=== PATIENT | female | born 1995 | race Caucasian/White ===

== ENCOUNTER 2020-07-27 07:39 | Inpatient (IN) ==
[2020-07-27] MEDS ORDERED: OXYTOCIN 30 UNITS/500 ML BAG IV PRN (09:45)
--- NOTE | 2020-07-27 10:01 | Labor Progress Brief Note ---
Date of Service July 27, 2020 Subjective Reason For Note: Other Admit Note 25 F P0000 at 39.2 weeks admitted for induction of labor for gestational diabetes cdiet controlled. GBS is negative. FHT Cat 1. Covid is negative. Cervix is 2/50/-3/intact/posterior/soft. EFW [address] Cytotec vaginally to start cervical ripening. Assessment & Plan Admission and Anticipated Discharge Date Admission Date: July 27, 2020 Results & Data ([facility]) Vital Signs (Past 12 Hours) Vital Signs Temp Pulse Resp BP 07/27/20 07:53 37.1 C 106 H 18 131/73 07/27/20 07:49 106 H 131/73
--- NOTE | 2020-07-27 10:16 | Labor Progress Brief Note ---
Date of Service July 27, 2020 Subjective Reason For Note: Routine Evaluation Assessment & Plan Admission and Anticipated Discharge Date Admission Date: July 27, 2020 Physical Exam Physical Exam: Cytotec 25 mcg placed vaginally. Results & Data ([facility]) Vital Signs (Past 12 Hours) Vital Signs Temp Pulse Resp BP 07/27/20 07:53 37.1 C 106 H 18 131/73 07/27/20 07:49 106 H 131/73
[2020-07-27] MEDS: miSOPROStoL 25 MCG TAB PV SCH ×2 (10:20→15:46)
[2020-07-27 10:26] LABS: Hematocrit (blood only) 33.9 % (37-47); Mean Corpuscular Hemoglobin 25.1 pg (25-34); Mean Corpuscular Hgb Conc 32.4 g/dL (32-36); Mean Corpuscular Volume 77.2 fL (80-100); Mean Platelet Volume 11.2 fL (7.4-10.4); Platelet Count 259 K/uL (130-400); RDW Coefficient of Variation 14.3 % (11.5-14.5); RDW Standard Deviation 40.5 fL (36.4-46.3); Red Blood Count 4.39 M/uL (4.2-5.4); White Blood Count 9.17 K/uL (4.8-10.8)
[2020-07-27] MEDS: LACTATED RINGER'S 1,000 ML IV PRN (14:55)
--- NOTE | 2020-07-27 17:12 | Labor Progress Brief Note ---
Date of Service July 27, 2020 Assessment & Plan Admission and Anticipated Discharge Date Admission Date: July 27, 2020 Physical Exam Genitourinary: Manual OB Exam: + cervical dilation 1 cm and 2 cm, + cervical effacement 60% and + station high OB Exam Monitor Tracing: + external FHT monitor used, + external uterine monitor used, + category I and + normal FHT variability Results & Data ([facility]) Vital Signs (Past 12 Hours) Vital Signs Temp Pulse Resp BP 07/27/20 16:28 80 110/66 07/27/20 16:27 36.7 C 20 07/27/20 14:18 36.9 C 83 18 116/72 07/27/20 10:57 36.9 C 78 18 112/55 L 07/27/20 07:53 37.1 C 106 H 18 131/73 07/27/20 07:49 106 H 131/73
[2020-07-27] MEDS ORDERED: BUTORPHANOL TARTRATE 1 MG/ML VIAL IV PRN (17:30)
[2020-07-28] MEDS: miSOPROStoL 50 MCG TAB PO SCH ×2 (01:31→05:33)
[2020-07-28] MEDS ORDERED: OXYTOCIN 30 UNITS/500 ML BAG IV PRN (09:25)
--- NOTE | 2020-07-28 09:31 | History & Physical Report ---
Date of Service July 28, 2020 Assessment & Plan (1) Gestational diabetes: 25-year-old G1, P0 at 39 weeks and 4 days of gestation who was admitted yesterday for induction of labor at term for history of gestational diabetes and worsening lower extremity edema. Vital signs stable afebrile Heart rate reassuring GBS negative Lower extremity edema is much better today Received Cytotec and cervix is favorable now. Offered her Pitocin and AROM but she wants to eat breakfast first and then continue with induction of labor. All questions were answered. Admission and Anticipated Discharge Date Admission Date: July 27, 2020 History of Present Illness Primary Care Provider: NO PCP Patient is a 25-year-old at 39 weeks and 4 days of gestation who was admitted yesterday by Dr. Leon for induction of labor at term, gestational diabetes, increased lower extremity edema She has received Cytotec and has been fidencio off and on. No leakage of fluid or vaginal bleeding Good movements GBS negative Coronavirus testing is negative Allergies Allergy/AdvReac Type Severity Reaction Status Date / Time No Known Allergies Allergy Unverified 07/23/15 17:33 Home Medications Medication Instructions Recorded Confirmed Type vit no.[id number]-axpz-[id number] 1 tab PO DAILY 07/20/20 07/27/20 History [ Vitamin] Patient History Medical History (Updated 07/28/20 @ 09:30 by Shalom Cooper MD) Gestational diabetes Diet controlled PCOS (polycystic ovarian syndrome) Surgical History [place] teeth extracted Social History Smoking Status: Never smoker Hx Alcohol Use: No Hx Substance Use: No Preferred Language: Frisian Communication Ability: Effective Beliefs That Will Affect Care: None marital status: Current Living Situation: Spouse current occupational status: employed current occupation: Teacher - [employer] Other Information That Helps Us Care for You: No Feels Safe at Home: Yes Safety Concerns: Feels Safe At This Time Dental Care, Regularly: Yes Assistive Devices: None [employer]IC[employer] History No h/o STD's, no HSV/ Chlamydia/ GC Review of Systems All systems reviewed & are unremarkable except as noted in HPI & below Physical Exam Constitutional: WD/WN, vitals as above well developed and well nourished NAD Gastrointestinal (Abdomen): normal bowel sounds, soft, nontender, no hepatosplenomegaly (Miguel A 8 lb) Musculoskeletal: LE edema is much better , trace to +1, was +3 last week Genitourinary: normal external appearance Manual OB Exam: + cervical dilation 3 cm, + cervical effacement 70% and + station -2 OB Exam Monitor Tracing: + external uterine monitor used and + category I Results & Data ([facility]) Vital Signs (Past 12 Hours) Vital Signs Temp Pulse Resp BP 07/28/20 07:17 37 C 81 20 131/80 07/28/20 02:32 72 109/55 L 07/27/20 22:50 85 125/73 Code Status & VTE Plan VTE Prophylaxis Plan VTE Prophylaxis will be ordered: No
[2020-07-28] MEDS ORDERED: Nursing to Pharmacy Communication SCH (10:30)
[2020-07-28] MEDS: LACTATED RINGER'S 1,000 ML IV PRN ×3 (10:43→19:48)
[2020-07-28] MEDS ORDERED: ePHEDrine sulfate 50 MG/ML AMP ONE (12:59)
[2020-07-28] MEDS ORDERED: BUPIVACAINE 0.25% 30 ML VIAL ONE (12:59)
[2020-07-28] MEDS ORDERED: SODIUM CHLORIDE 0.9% INJ 10 ML VIAL ONE (12:59)
[2020-07-28] MEDS ORDERED: fentaNYL 2MCG/ML ROPIVACAINE 1.25MG/ML 100 ML BAG EPI ONE (13:00)
[2020-07-28] MEDS ORDERED: fentaNYL citrate 100 MCG/2 ML VIAL ONE (13:00)
--- NOTE | 2020-07-28 13:21 | Anesthesiology Consultation ---
Date of Service July 28, 2020 Assessment & Plan (1) Encounter for pre-operative examination: Chart Review Chart Review: Acceptable Risk for Surgery and Patient NOT seen in Pre Admission Testing Consults Requested none History Height/Weight Height: 5 ft 4 in Weight: 89.811 kg Allergies Allergy/AdvReac Type Severity Reaction Status Date / Time No Known Allergies Allergy Unverified 07/23/15 17:33 Medications Home Medications Medication Instructions Recorded Confirmed Last Taken vit no.077-psgh-cscar 1 tab PO DAILY 07/20/20 07/27/20 07/26/20 [ Vitamin] Active Medications Generic Name Dose Route Start Last Admin Trade Name Freq PRN Reason Stop Dose Admin Lactated Ringer's 1,000 mls @ 125 mls/hr 07/27/20 09:45 07/28/20 10:43 Lr IV 07/29/20 09:44 125 mls/hr .Q8H PRN Administration L&D Protocol Protocol Oxytocin 30 units in 500 mls @ 8 mls/hr 07/28/20 09:25 07/28/20 12:30 Pitocin IV 08/27/20 09:24 0.48 units/hr .Q24H PRN 8 mls/hr Labor Induction/Augmentation Titration Protocol 0.48 UNITS/HR Past Medical History Medical History Gestational diabetes Diet controlled PCOS (polycystic ovarian syndrome) Past Surgical History Surgical History [place] teeth extracted Social History Smoking Status: Never smoker Hx Alcohol Use: No Hx Substance Use: No Physical Exam Vital Signs Last Vital Signs Temp 37.1 C 07/28/20 12:32 Pulse 86 07/28/20 12:32 Resp 20 07/28/20 12:32 BP 111/73 07/28/20 12:32 Testing Laboratory Results 07/27/20 10:14
[2020-07-28] MEDS ORDERED: diphenhydrAMINE 50 MG/ML VIAL IV PRN (13:36)
[2020-07-28] MEDS ORDERED: fentaNYL 2MCG/ML ROPIVACAINE 1.25MG/ML 100 ML BAG EPI PRN (13:36)
[2020-07-28] MEDS ORDERED: ePHEDrine sulfate 50 MG/ML AMP IV PRN (13:36)
[2020-07-28] MEDS ORDERED: ONDANSETRON INJ 2 MG/ML 2 ML VIAL IV PRN (13:36)
[2020-07-28] MEDS ORDERED: NALOXONE HCL 0.4 MG/1 ML VIAL/CARP IV PRN (13:36)
[2020-07-28] MEDS ORDERED: NALOXONE HCL 1 MG in SODIUM CHLORIDE 0.9% 1000ML 1,000 ML IV PRN (13:36)
--- NOTE | 2020-07-28 16:38 | Obstetrical Progress Note ---
Date of Service July 28, 2020 Assessment & Plan Admission and Anticipated Discharge Date Admission Date: July 27, 2020 Subjective Patient has received epidural and comfortable now VE; 4/ 70%/ -2, tight bag, AROM'ed clear fluid FHR categ I Pitocin is at 10 mi/min Continue to monitor closely Results & Data ([facility]) Vital Signs (Past 12 Hours) Vital Signs Temp Pulse Resp BP Pulse Ox 07/28/20 16:33 88 100 07/28/20 16:30 75 119/69 07/28/20 16:28 78 99 07/28/20 16:23 72 98 07/28/20 16:18 71 99 07/28/20 16:14 82 119/63 07/28/20 16:13 76 98 07/28/20 16:08 71 98 07/28/20 16:03 92 H 99 07/28/20 15:59 90 127/73 07/28/20 15:58 83 98 07/28/20 15:53 90 99 07/28/20 15:48 71 97 07/28/20 15:44 79 120/70 07/28/20 15:43 78 99 07/28/20 15:38 76 98 07/28/20 15:33 83 98 07/28/20 15:30 69 116/65 07/28/20 15:28 71 97 07/28/20 15:23 81 97 07/28/20 15:18 69 98 07/28/20 15:15 71 120/65 07/28/20 15:13 74 98 07/28/20 15:08 78 98 07/28/20 15:03 82 99 07/28/20 14:59 86 112/71 07/28/20 14:58 80 98 07/28/20 14:55 36.8 C 16 07/28/20 14:53 82 97 07/28/20 14:48 87 98 07/28/20 14:44 70 118/67 07/28/20 14:43 75 97 07/28/20 14:38 75 98 07/28/20 14:33 83 98 07/28/20 14:30 20 07/28/20 14:29 84 121/68 07/28/20 14:28 81 98 07/28/20 14:27 82 113/67 07/28/20 14:25 82 115/66 07/28/20 14:23 89 120/64 98 07/28/20 14:21 85 120/67 07/28/20 14:19 90 120/69 07/28/20 14:18 86 98 07/28/20 14:17 88 123/67 07/28/20 14:15 75 118/65 07/28/20 14:13 91 H 115/67 98 07/28/20 14:11 77 114/60 07/28/20 14:09 83 115/61 07/28/20 14:08 84 98 07/28/20 14:07 81 20 119/63 07/28/20 14:05 85 119/63 07/28/20 14:03 84 125/65 98 07/28/20 14:01 97 H 130/69 07/28/20 13:59 96 H 131/79 07/28/20 13:58 93 H 98 07/28/20 13:57 87 18 128/72 07/28/20 13:53 98 H 99 07/28/20 13:48 90 100 07/28/20 13:43 89 99 07/28/20 13:38 37.1 C 85 20 141/73 H 100 07/28/20 12:32 37.1 C 86 20 111/73 07/28/20 11:27 85 107/60 07/28/20 10:51 37.4 C 95 H 20 114/73 07/28/20 07:17 37 C 81 20 131/80
[2020-07-28] MEDS ORDERED: NURSING L&D Epidural Breakthrough Pain Update ONE (20:50)
--- NOTE | 2020-07-28 22:35 | Obstetrical Progress Note ---
Date of Service July 28, 2020 Assessment & Plan Admission and Anticipated Discharge Date Admission Date: July 27, 2020 Subjective Patient was found to be fully dilated and desire to push. She has been pushing with good efforts. heart rate category 1. Head is at +2 station with caput 66 NEJM and anterior fontanelle at 11 o'clock position, OP. Patient is painful with trial of manual internal rotation. She understands second stage might be longer with occipitoposterior position. Continue to monitor and pushing with contractions. Results & Data ([facility]) Vital Signs (Past 12 Hours) Vital Signs Temp Pulse Resp BP Pulse Ox 07/28/20 22:30 106 H 156/64 H 07/28/20 22:28 133 H 95 07/28/20 22:23 114 H 98 07/28/20 22:21 111 H 85 L 07/28/20 22:18 107 H 98 07/28/20 22:14 111 H 86 L 07/28/20 22:13 108 H 97 07/28/20 22:08 102 H 98 07/28/20 22:07 94 H 90 07/28/20 22:05 82 123/58 L 07/28/20 22:03 100 H 88 L 07/28/20 22:00 94 H 90 07/28/20 21:58 91 H 99 07/28/20 21:53 100 H 82 L 07/28/20 21:48 95 H 86 L 07/28/20 21:46 100 H 129/61 07/28/20 21:43 93 H 98 07/28/20 21:42 93 H 89 L 07/28/20 21:38 93 H 99 07/28/20 21:34 107 H 88 L 07/28/20 21:33 88 98 07/28/20 21:31 148 H 149/56 H 07/28/20 21:28 109 H 100 07/28/20 21:23 91 H 99 07/28/20 21:18 97 H 100 07/28/20 21:14 112 H 149/94 H 07/28/20 21:13 101 H 100 07/28/20 21:08 114 H 99 07/28/20 21:05 36.5 C 16 07/28/20 21:03 104 H 100 07/28/20 21:01 104 H 133/73 07/28/20 20:58 98 H 99 07/28/20 20:53 96 H 100 07/28/20 20:48 89 100 07/28/20 20:44 93 H 123/69 07/28/20 20:43 94 H 99 07/28/20 20:38 83 99 07/28/20 20:33 89 99 07/28/20 20:31 99 H 122/71 07/28/20 20:28 103 H 100 07/28/20 20:23 82 100 07/28/20 20:18 91 H 100 07/28/20 20:14 74 108/63 07/28/20 20:13 73 99 07/28/20 20:08 74 99 07/28/20 20:03 70 99 07/28/20 20:01 37.0 C 16 07/28/20 19:59 66 106/56 L 07/28/20 19:58 70 99 07/28/20 19:53 72 100 07/28/20 19:50 36.5 C 18 07/28/20 19:48 81 100 07/28/20 19:46 76 112/54 L 07/28/20 19:43 84 100 07/28/20 19:38 86 100 07/28/20 19:33 75 100 07/28/20 19:31 71 128/86 07/28/20 19:28 80 100 07/28/20 19:23 80 100 07/28/20 19:18 99 H 100 07/28/20 19:15 76 120/59 L 07/28/20 19:13 86 100 07/28/20 19:08 84 99 07/28/20 19:03 70 99 07/28/20 18:59 71 118/68 07/28/20 18:58 72 100 07/28/20 18:53 79 100 07/28/20 18:48 70 100 07/28/20 18:45 73 108/58 L 07/28/20 18:43 70 99 07/28/20 18:38 72 99 07/28/20 18:33 72 99 07/28/20 18:30 69 122/70 07/28/20 18:28 72 99 07/28/20 18:23 71 99 07/28/20 18:18 78 98 07/28/20 18:14 75 121/61 07/28/20 18:13 72 99 06/05/15 18:08 82 99 06 18:03 85 97 06/05/15 17:59 79 129/64 06 17:58 87 98 06 17:53 90 98 06 17:48 74 99 06 17:46 73 129/71 06 17:43 68 100 06 17:38 85 99 06 17:33 79 98 06 17:30 75 128/74 06 17:28 82 99 06/05/15 17:23 79 98 06 17:18 75 98 06 17:14 77 128/72 07/28/20 17:13 78 98 06 17:08 74 99 06 17:03 81 99 06 16:59 70 119/72 07/28/20 16:58 70 99 06 16:53 81 99 07/28/20 16:48 69 98 06 16:44 71 119/74 06 16:43 75 99 06 16:38 80 98 06 16:33 88 100 06 16:30 75 119/69 06 16:28 78 99 06 16:23 72 98 06 16:18 71 99 06 16:14 82 119/63 07/28/20 16:13 76 98 06 16:08 71 98 06 16:03 92 H 99 06 15:59 90 127/73 06 15:58 83 98 06/03 15:53 90 99 06/03 15:48 71 97 06/03/ 15:44 79 120/70 0603 15:43 78 99 06/05/15 15:38 76 98 06/03 15:33 83 98 06/03 15:30 69 116/65 06/03/21 15:28 71 97 06/03/21 15:23 81 97 06/0321 15:18 69 98 06/03 15:15 71 120/65 06/03/ 15:13 74 98 07/28/20 15:08 78 98 07/28/20 15:03 82 99 07/28/20 14:59 86 112/71 07/28/20 14:58 80 98 07/28/20 14:55 36.8 C 16 07/28/20 14:53 82 97 07/28/20 14:48 87 98 07/28/20 14:44 70 118/67 07/28/20 14:43 75 97 07/28/20 14:38 75 98 07/28/20 14:33 83 98 07/28/20 14:30 20 07/28/20 14:29 84 121/68 07/28/20 14:28 81 98 07/28/20 14:27 82 113/67 07/28/20 14:25 82 115/66 07/28/20 14:23 89 120/64 98 07/28/20 14:21 85 120/67 07/28/20 14:19 90 120/69 07/28/20 14:18 86 98 07/28/20 14:17 88 123/67 07/28/20 14:15 75 118/65 07/28/20 14:13 91 H 115/67 98 07/28/20 14:11 77 114/60 07/28/20 14:09 83 115/61 07/28/20 14:08 84 98 07/28/20 14:07 81 20 119/63 07/28/20 14:05 85 119/63 07/28/20 14:03 84 125/65 98 07/28/20 14:01 97 H 130/69 07/28/20 13:59 96 H 131/79 07/28/20 13:58 93 H 98 07/28/20 13:57 87 18 128/72 07/28/20 13:53 98 H 99 07/28/20 13:48 90 100 07/28/20 13:43 89 99 07/28/20 13:38 37.1 C 85 20 141/73 H 100 21 12:32 37.1 C 86 20 111/73 07/28/20 11:27 85 107/60 07/28/20 10:51 37.4 C 95 H 20 114/73
[2020-07-28] MEDS ORDERED: MINERAL OIL 30 ML UDC ONE (23:06)
[2020-07-28] MEDS ORDERED: LIDOCAINE 1% LOCAL 20 ML VIAL ONE (23:24)
[2020-07-29] MEDS ORDERED: SODIUM CHLORIDE 0.9% INJ 10 ML VIAL ONE (00:29)
[2020-07-29] MEDS ORDERED: BUPIVACAINE 0.25% 30 ML VIAL ONE (00:29)
[2020-07-29] MEDS ORDERED: fentaNYL citrate 100 MCG/2 ML VIAL ONE ×2 (00:33→01:57)
[2020-07-29] MEDS: LACTATED RINGER'S 1,000 ML IV PRN (00:56)
[2020-07-29] MEDS ORDERED: SODIUM CHLORIDE 0.9% 250 ML IV PRN (00:59)
--- NOTE | 2020-07-29 01:05 | Delivery Summary ---
Vaginal Delivery Summary Date of Service July 29, 2020 Vaginal Delivery Summary Patient was found to be fully dilated and desire to push she pushed for about 2 hours and and was getting exhausted and was very uncomfortable despite using epidural button. After verbal consent was obtained 1% lidocaine was injected onto perineum and a right mediolateral episode and was opened. And head was delivered with next 2 pushes in the shoulders with minimal weighted delivered with minimal traction and he was handed to the mother and there was a terminal meconium. Mottled nose were suctioned cord was clamped x2 and cut at 1 minute delay. And cord blood was obtained. Vagina and perineum were checked for lacerations. There was only episiotomy which was opened earlier it was second-degree. It was repaired with 2-0 Vicryl in a running locked fashion bringing vaginal mucosa together bulbocavernosus muscles together and skin in a subcuticular fashion excellent hemostasis was achieved. We then waited for about 25 minutes and placenta was still attached. She was given 1 mg of Stadol and then tried manual delivery of placenta from fundus. It was partially detached by myself but patient was uncomfortable and I had to stop. We then called anesthesia, Dr. Irwin who gave epidural bolus. And then most of the placenta was in the vagina it was delivered 1 week from push and it appeared to have a complete cervical disc but completeness was uncertain on the cotyledons. And the uterus was explored and found to have irregular surface on the fundus and posterior wall most likely retained placenta/membranes. Patient was unable to tolerate manual exam further and decision was made to and intervention here and take her to the OR for curettage under anesthesia. She giving IV antibiotics and we will have type and cross 2 units of packed red presently red blood cells ready. Patient's understands risks and benefits and she signed an informed consent. Baby was a viable female infant Apgars were 6/8. She was born on July 28 at 20 3:35 PM. Please see dictated op note for details of curettage.
[2020-07-29] MEDS ORDERED: ceFAZolin 2000MG 2,000 MG/15 ML SYR IV ONE (01:15)
[2020-07-29] MEDS ORDERED: CLINDAMYCIN 900 MG in DEXTROSE 5% 50 ML IV ONE (01:15)
[2020-07-29] MEDS ORDERED: fentaNYL citrate 100 MCG/2 ML VIAL IV PRN (01:24)
[2020-07-29] MEDS ORDERED: ePHEDrine sulfate 50 MG/ML AMP IV PRN (01:24)
[2020-07-29] MEDS ORDERED: ONDANSETRON INJ 2 MG/ML 2 ML VIAL IV PRN (01:24)
[2020-07-29] MEDS ORDERED: ATROPINE SULFATE 0.1 MG/ML 10ML SYR IV PRN (01:24)
[2020-07-29] MEDS ORDERED: PHENYLEPHRINE 100MCG/ML 5ML SYR IV PRN (01:24)
[2020-07-29] MEDS ORDERED: MEPERIDINE HCL 25 MG/ML CARP/VIAL IV PRN (01:24)
[2020-07-29] MEDS ORDERED: LABETALOL HCL IV 5 MG/ML 20ML IV PRN (01:24)
--- NOTE | 2020-07-29 01:29 | Anesthesiology Consultation ---
Date of Service July 29, 2020 Assessment & Plan Chart Review Chart Review: Acceptable Risk for Surgery and Patient NOT seen in Pre Admission Testing Consults Requested none ASA ASA2 Proposed Anesthesia Anesthesia Type: MAC Epidural Risk / Benefits Reviewed With: PT / POA / Parent / Guardian, Accepts Plan and Informed Consent Obtained History Surgery Operation Date: 07/29/20 01:15 Proposed Procedures p Dilation and Curettage - Shalom Cooper MD Height/Weight Height: 5 ft 4 in Weight: 89.811 kg Allergies Allergy/AdvReac Type Severity Reaction Status Date / Time No Known Allergies Allergy Unverified 07/23/15 17:33 Medications Home Medications Medication Instructions Recorded Confirmed Last Taken vit no.407-[id number]-[id number] 1 tab PO DAILY 07/20/20 07/27/20 07/26/20 [ Vitamin] Active Medications Generic Name Dose Route Start Last Admin Trade Name Freq PRN Reason Stop Dose Admin Butorphanol Tartrate 1 mg 07/27/20 17:30 07/29/20 00:08 Butorphanol Tartrate 1 Mg/Ml Vial IV 08/26/20 17:29 1 mg Q2R PRN Administration Pain Lactated Ringer's 1,000 mls @ 125 mls/hr 07/27/20 09:45 07/29/20 01:18 Lr IV 07/29/20 09:44 0 mls/hr .Q8H PRN Infusion L&D Protocol Protocol Oxytocin 30 units in 500 mls @ 20 mls/hr 07/28/20 09:25 07/29/20 00:10 Pitocin IV 08/27/20 09:24 1.2 units/hr .Q24H PRN 20 mls/hr Labor Induction/Augmentation Titration Protocol 1.2 UNITS/HR Clindamycin Phosphate 900 mg/ 56 mls @ 112 mls/hr 07/29/20 01:15 07/29/20 01:18 Dextrose IV 07/29/20 01:44 112 mls/hr ONE ONE Administration NPO Date Last Intake of Fluids: 07/28/20 Time Last Intake of Fluids: 19:30 Time Last Intake of Solids: 10:30 Past Medical History Medical History Gestational diabetes Diet controlled PCOS (polycystic ovarian syndrome) Exercise / Class Metabolic Activity II 4-5 Yardwork/Stairs/Walk up hill Past Surgical History Surgical History [place] teeth extracted Past Anesthesia History No Hx of Anesthesia Complications and No Family Hx of Anesthesia Complications Social History Smoking Status: Never smoker Hx Alcohol Use: No Hx Substance Use: No Review of Systems no chest pain or sob Physical Exam Vital Signs Last Vital Signs Temp 36.5 C 07/28/20 21:05 Pulse 91 H 07/29/20 01:24 Resp 16 07/28/20 21:05 BP 107/57 L 07/29/20 01:15 Pulse Ox 98 07/29/20 01:24 ENMT Mouth: no TMJ abnormality Thyromental Distance: > or= 3.5 Finger Breadths Mallampati Class: II Neck normal visual inspection Respiratory normal respiratory effort Auscultation: lungs clear to auscultation bilaterally Cardiovascular Rate/Rhythm: regular rate and regular rhythm Neurologic moves all extremities Psychiatric Orientation: alert and oriented x 3 Testing Laboratory Results 07/27/20 10:14
[2020-07-29] MEDS ORDERED: LIDOCAINE 2%/EPINEPHRINE 1:200,000 20 ML SDV ONE (01:54)
[2020-07-29] MEDS ORDERED: ONDANSETRON INJ 2 MG/ML 2 ML VIAL ONE (01:55)
[2020-07-29] MEDS ORDERED: PHENYLEPHRINE 100MCG/ML 5ML SYR ONE (01:55)
[2020-07-29] MEDS ORDERED: miSOPROStoL 100 MCG TAB ONE (02:06)
[2020-07-29] MEDS ORDERED: OXYTOCIN 10 UNITS/ML VIAL ONE (02:09)
[2020-07-29] MEDS ORDERED: METHYLERGONOVINE MALEATE 0.2 MG/ML AMP ONE (02:09)
[2020-07-29] MEDS ORDERED: OXYTOCIN 30 UNITS/500 ML BAG IV PRN (02:17)
[2020-07-29] MEDS ORDERED: MEASLES, MUMPS & RUBELLA VIRUS VIAL SQ ONE (02:17)
[2020-07-29] MEDS ORDERED: miSOPROStoL 100 MCG TAB PR ONE (02:17)
[2020-07-29] MEDS ORDERED: oxyCODONE/ACETAMINOPHEN 5mg/325mg TAB PO PRN (02:17)
[2020-07-29] MEDS ORDERED: HYDROCORTISONE ACETATE 25 MG SUPP PR PRN (02:17)
[2020-07-29] MEDS ORDERED: bisacodyL 10 MG SUPP PR PRN (02:17)
[2020-07-29] MEDS ORDERED: BENZOCAINE 20% AER SPR 82.5 GM CAN EXT PRN (02:17)
[2020-07-29] MEDS ORDERED: DIPHTHERIA/TETANUS/PERTUSSIS 0.5 ML SYR/VIAL IM ONE (02:17)
[2020-07-29] MEDS ORDERED: SUPERCREAM 0.870% 15 GM JAR EXT PRN (02:17)
--- NOTE | 2020-07-29 02:33 | Anesthesiology Progress Note ---
Date of Service July 29, 2020 Anesthesia Post Procedure Vital Signs Vital Signs: Temp Pulse Resp BP Pulse Ox 07/29/20 02:29 90 103/54 L 07/29/20 02:27 90 99 07/29/20 01:24 91 H 98 07/29/20 01:19 82 97 07/29/20 01:15 96 H 107/57 L 07/29/20 01:14 89 98 07/29/20 01:11 83 107/56 L 07/29/20 01:09 80 98 07/29/20 01:04 82 97 07/29/20 01:00 81 101/52 L 07/29/20 00:59 86 97 07/29/20 00:56 96 H 95/55 L 07/29/20 00:54 105 H 98 07/29/20 00:51 129 H 116/57 L 07/29/20 00:49 106 H 100 07/29/20 00:48 113 H 89 L 07/29/20 00:46 91 H 115/60 07/29/20 00:44 90 98 07/29/20 00:40 100 H 117/64 07/29/20 00:39 102 H 96 07/29/20 00:35 92 H 115/61 07/29/20 00:34 96 H 97 07/29/20 00:29 94 H 95 07/29/20 00:24 94 H 95 07/29/20 00:19 108 H 97 07/29/20 00:17 100 H 89 L 07/29/20 00:14 101 H 96 07/29/20 00:09 101 H 94 07/29/20 00:04 98 H 96 07/28/20 23:59 105 H 96 07/28/20 23:54 102 H 95 07/28/20 23:49 110 H 95 07/28/20 23:44 109 H 96 07/28/20 23:43 110 H 96 07/28/20 23:38 115 H 97 07/28/20 23:35 124 H 88 L 07/28/20 23:33 133 H 98 07/28/20 23:28 133 H 97 07/28/20 23:23 101 H 92 07/28/20 23:18 120 H 94 07/28/20 23:13 104 H 97 07/28/20 23:08 124 H 95 07/28/20 23:07 109 H 89 L 07/28/20 23:03 148 H 97 07/28/20 23:01 113 H 88 L 07/28/20 23:00 111 H 137/65 07/28/20 22:58 111 H 96 07/28/20 22:55 118 H 90 07/28/20 22:53 113 H 97 07/28/20 22:48 146 H 98 07/28/20 22:45 113 H 124/57 L 07/28/20 22:43 120 H 96 07/28/20 22:38 124 H 97 07/28/20 22:33 123 H 97 07/28/20 22:30 106 H 156/64 H 07/28/20 22:28 133 H 95 07/28/20 22:23 114 H 98 07/28/20 22:21 111 H 85 L 07/28/20 22:18 107 H 98 07/28/20 22:14 111 H 86 L 07/28/20 22:13 108 H 97 07/28/20 22:08 102 H 98 07/28/20 22:07 94 H 90 07/28/20 22:05 82 123/58 L 07/28/20 22:03 100 H 88 L 07/28/20 22:00 94 H 90 07/28/20 21:58 91 H 99 07/28/20 21:53 100 H 82 L 07/28/20 21:48 95 H 86 L 07/28/20 21:46 100 H 129/61 07/28/20 21:43 93 H 98 07/28/20 21:42 93 H 89 L 07/28/20 21:38 93 H 99 07/28/20 21:34 107 H 88 L 07/28/20 21:33 88 98 07/28/20 21:31 148 H 149/56 H 07/28/20 21:28 109 H 100 07/28/20 21:23 91 H 99 07/28/20 21:18 97 H 100 07/28/20 21:14 112 H 149/94 H 07/28/20 21:13 101 H 100 07/28/20 21:08 114 H 99 07/28/20 21:05 36.5 C 16 07/28/20 21:03 104 H 100 07/28/20 21:01 104 H 133/73 07/28/20 20:58 98 H 99 07/28/20 20:53 96 H 100 07/28/20 20:48 89 100 07/28/20 20:44 93 H 123/69 07/28/20 20:43 94 H 99 07/28/20 20:38 83 99 07/28/20 20:33 89 99 07/28/20 20:31 99 H 122/71 07/28/20 20:28 103 H 100 07/28/20 20:23 82 100 07/28/20 20:18 91 H 100 07/28/20 20:14 74 108/63 07/28/20 20:13 73 99 07/28/20 20:08 74 99 07/28/20 20:03 70 99 07/28/20 20:01 37.0 C 16 07/28/20 19:59 66 106/56 L 07/28/20 19:58 70 99 07/28/20 19:53 72 100 07/28/20 19:50 36.5 C 18 07/28/20 19:48 81 100 07/28/20 19:46 76 112/54 L 07/28/20 19:43 84 100 07/28/20 19:38 86 100 07/28/20 19:33 75 100 07/28/20 19:31 71 128/86 07/28/20 19:28 80 100 07/28/20 19:23 80 100 07/28/20 19:18 99 H 100 07/28/20 19:15 76 120/59 L 07/28/20 19:13 86 100 07/28/20 19:08 84 99 07/28/20 19:03 70 99 07/28/20 18:59 71 118/68 07/28/20 18:58 72 100 07/28/20 18:53 79 100 07/28/20 18:48 70 100 07/28/20 18:45 73 108/58 L 07/28/20 18:43 70 99 07/28/20 18:38 72 99 07/28/20 18:33 72 99 07/28/20 18:30 69 122/70 07/28/20 18:28 72 99 07/28/20 18:23 71 99 07/28/20 18:18 78 98 07/28/20 18:14 75 121/61 06/03 18:13 72 99 06/03 18:08 82 99 06/05/15 18:03 85 97 06/03 17:59 79 129/64 06 17:58 87 98 06/05/15 17:53 90 98 06/05/15 17:48 74 99 06/03/ 17:46 73 129/71 06 17:43 68 100 06/03 17:38 85 99 06/05/15 17:33 79 98 06/03 17:30 75 128/74 06 17:28 82 99 06/05/15 17:23 79 98 06/05/15 17:18 75 98 06/05/15 17:14 77 128/72 06 17:13 78 98 06 17:08 74 99 06 17:03 81 99 06 16:59 70 119/72 06 16:58 70 99 06 16:53 81 99 06/05/15 16:48 69 98 06/03 16:44 71 119/74 06 16:43 75 99 06/05/15 16:38 80 98 06/05/15 16:33 88 100 06/03 16:30 75 119/69 06 16:28 78 99 06/05/15 16:23 72 98 06/05/15 16:18 71 99 06/03 16:14 82 119/63 06 16:13 76 98 06/03 16:08 71 98 06/03 16:03 92 H 99 06/03 15:59 90 127/73 06/03 15:58 83 98 06/03/21 15:53 90 99 06/03/21 15:48 71 97 06/03/21 15:44 79 120/70 06/03/21 15:43 78 99 06/03/21 15:38 76 98 06/03/21 15:33 83 98 06/03/21 15:30 69 116/65 06/03/21 15:28 71 97 06/03/21 15:23 81 97 06/03/21 15:18 69 98 06/03/21 15:15 71 120/65 07/28/20 15:13 74 98 07/28/20 15:08 78 98 07/28/20 15:03 82 99 07/28/20 14:59 86 112/71 07/28/20 14:58 80 98 07/28/20 14:55 36.8 C 16 07/28/20 14:53 82 97 07/28/20 14:48 87 98 07/28/20 14:44 70 118/67 07/28/20 14:43 75 97 07/28/20 14:38 75 98 07/28/20 14:33 83 98 07/28/20 14:30 20 07/28/20 14:29 84 121/68 07/28/20 14:28 81 98 07/28/20 14:27 82 113/67 07/28/20 14:25 82 115/66 07/28/20 14:23 89 120/64 98 07/28/20 14:21 85 120/67 07/28/20 14:19 90 120/69 07/28/20 14:18 86 98 07/28/20 14:17 88 123/67 07/28/20 14:15 75 118/65 07/28/20 14:13 91 H 115/67 98 07/28/20 14:11 77 114/60 07/28/20 14:09 83 115/61 07/28/20 14:08 84 98 07/28/20 14:07 81 20 119/63 07/28/20 14:05 85 119/63 07/28/20 14:03 84 125/65 98 07/28/20 14:01 97 H 130/69 07/28/20 13:59 96 H 131/79 07/28/20 13:58 93 H 98 07/28/20 13:57 87 18 128/72 07/28/20 13:53 98 H 99 07/28/20 13:48 90 100 07/28/20 13:43 89 99 07/28/20 13:38 37.1 C 85 20 141/73 H 100 07/28/20 12:32 37.1 C 86 20 111/73 07/28/20 11:27 85 107/60 07/28/20 10:51 37.4 C 95 H 20 114/73 06/03/21 07:17 37 C 81 20 131/80 Pain Intensity Abdomen: Pain Intensity: 1 Transfer of Care Handoff Completed per policy Notes Mental Status: alert / awake / arousable Patient Amnestic to Procedure: Yes Nausea / Vomiting: adequately controlled Pain: adequately controlled Airway Patency, RR, SpO2: stable & adequate BP & HR: stable & adequate Hydration State: stable & adequate Neuraxial Anesthesia: was administered and sensory block is resolving Anesthetic Complications: no major complications apparent and Pt Satisfied with anesthetic care
--- NOTE | 2020-07-29 02:42 | Post Operative Brief Note ---
Immediate Post Op Note v1 Date of Surgery July 29, 2020 Pre & Post Diagnosis Operation Date: 07/29/20 01:15 Pre-Op Diagnosis: 1. Retained placenta Post-Op Diagnosis: 1. Same I identified the patient and participated in the time-out.: Yes Procedure Operation Date: 07/29/20 01:15 Actual Procedures p Dilatation and Curettage - Shalom Cooper MD Surgeon Shalom Cooper MD Manager Photography OR tech Estimated Blood Loss 150 Findings Consistent with Post-Op Diagnosis Anesthesia Type Labor Epidural Complications none Disposition Accompanied Patient To Recovery: Yes Disposition: L&D
[2020-07-29] MEDS: IBUPROFEN 600 MG TAB PO PRN ×5 (03:53→22:15)
[2020-07-29 05:31] LABS: Hematocrit (blood only) 31.1 % (37-47); Hemoglobin 10.1 g/dL (12.0-16.0)
[2020-07-29] MEDS: METHYLERGONOVINE MALEATE 0.2 MG TAB PO SCH ×5 (05:34→21:32)
--- NOTE | 2020-07-29 06:41 | Operative Report (OR) ---
DATE OF OPERATION: 07/29/2020 PREOPERATIVE DIAGNOSES: The patient is a 25-year-old G1, P1, status post vaginal delivery and manual delivery of placenta with retained products of conception and membranes. POSTOPERATIVE DIAGNOSES: The patient is a 25-year-old G1, P1, status post vaginal delivery and manual delivery of placenta with retained products of conception and membranes. PROCEDURE: Exam under anesthesia, uterine curettage and repair of a vaginal laceration. SURGEON: Shalom Cooper MD. VISUALLY IMPAIRED TEACHER: OR a and p technician. ANESTHESIA: Epidural, Dr. Irwin. COMPLICATIONS: None. ESTIMATED BLOOD LOSS: 150 mL. DESCRIPTION OF PROCEDURE: The patient was taken to the operating room where epidural anesthesia was dosed by Dr. Irwin and the patient had good pain control during the procedure. She was placed in dorsal lithotomy position and she was prepared and draped in usual sterile fashion and bladder was drained with straight catheter, about 150 mL of dark urine was obtained. Then, a speculum was placed in the patient's vagina, cervix was visualized and there was a membrane at the os, which was grasped with ring forceps and removed and then with her nurse holding the uterus fundus up, a boom curette was introduced into the uterine cavity and uterine cavity was scraped with the curette. A small amount of piece of placenta was obtained. Instruments were removed from the patient's vagina. Then I introduced my right hand and, introduced the boom curette over it while my nurse was holding the fundus stable. Again while feeling inside of the uterus, I curetted the anterior and posterior wall of the uterus and the fundus and small amount of placenta obtained and the rest of the pieces of blood clots. Instruments were removed. The patient's uterus was explored manually and found to be empty. Uterus was massaged. IV oxytocin was started. IM Methergine was given. Uterus became firmer and bleeding slowed down. Cervix was visualized to be hemostatic. The episiotomy, which was repaired earlier, was opened superficially so it was repaired with 2-0 Vicryl in a running fashion. Excellent hemostasis was achieved. Then, the bleeding was minimal. She was given 1000 mcg of Cytotec rectally and she was taken to recovery room in stable condition. No complications happened and I was present during whole procedure. I attest to the content of the Intraoperative Record and any orders documented therein. Any exceptions are noted below. EVAD
[2020-07-29] MEDS: PRENATAL VITAMIN 1 TAB PO SCH (08:08)
[2020-07-29] MEDS: DOCUSATE SODIUM 100 MG CAP PO SCH ×2 (08:08→21:32)
[2020-07-29] MEDS: ACETAMINOPHEN 325 MG TAB PO PRN ×2 (08:09→13:04)
[2020-07-29] MEDS: ceFAZolin 2000MG 2,000 MG/15 ML SYR IV SCH ×2 (11:22→18:37)
[2020-07-29] MEDS: CLINDAMYCIN 900 MG in DEXTROSE 5% 50 ML IV SCH ×2 (11:50→18:42)
[2020-07-29] MEDS ORDERED: Nursing to Pharmacy Communication SCH (12:45)
[2020-07-29] MEDS: FERROUS SULFATE 325 MG TAB PO SCH ×2 (13:03→21:32)
[2020-07-30] MEDS: ceFAZolin 2000MG 2,000 MG/15 ML SYR IV SCH (01:36)
[2020-07-30] MEDS: CLINDAMYCIN 900 MG in DEXTROSE 5% 50 ML IV SCH (01:42)
[2020-07-30] MEDS: IBUPROFEN 600 MG TAB PO PRN ×3 (07:26→16:13)
[2020-07-30 07:34] LABS: Hematocrit (blood only) 29.8 % (37-47); Hemoglobin 9.6 g/dL (12.0-16.0); Mean Corpuscular Hemoglobin 25.1 pg (25-34); Mean Corpuscular Hgb Conc 32.2 g/dL (32-36); Mean Corpuscular Volume 77.8 fL (80-100); Mean Platelet Volume 10.8 fL (7.4-10.4); Platelet Count 241 K/uL (130-400); RDW Coefficient of Variation 14.8 % (11.5-14.5); RDW Standard Deviation 42.1 fL (36.4-46.3); Red Blood Count 3.83 M/uL (4.2-5.4); White Blood Count 14.34 K/uL (4.8-10.8)
[2020-07-30] MEDS: PRENATAL VITAMIN 1 TAB PO SCH (08:27)
[2020-07-30] MEDS: METHYLERGONOVINE MALEATE 0.2 MG TAB PO SCH ×3 (08:27→17:00)
[2020-07-30] MEDS: DOCUSATE SODIUM 100 MG CAP PO SCH (08:27)
[2020-07-30] MEDS: FERROUS SULFATE 325 MG TAB PO SCH (08:27)
[2020-07-30] MEDS ORDERED: bisacodyL 5 MG TABEC PO SCH (20:00)
--- NOTE | 2020-08-15 15:27 | Discharge Summary (DS) ---
DATE OF ADMISSION: 07/27/2020 DATE OF DISCHARGE: 07/30/2020. DETAILS OF ADMISSION: Patient is a 25-year-old G1, P0 at 39 weeks and 2 days of gestation, who was admitted for induction of labor at term on 07/[address] Johnson due to gestational diabetes. Her GBS was negative and heart rate was category 1. Her cervix was unfavorable. She received Cytotec vaginally and On 07/28/2020 when I came in, her cervix was favorable. She desired to eat breakfast and continue with induction of labor. She was started on Pitocin and she received epidural after which artificial rupture of membranes was done and clear fluid was obtained. In the evening, she was found to be fully dilated and desired to push. Head was occiput posterior. She pushed for about 2 hours and then she delivered a viable female on 07/28/2020. See delivery note for details. The placenta was delivered after half an hour and it was incomplete with retained membrane and cotyledons. The patient was unable to tolerate manual exam and in labor and delivery room. She was taken to OR and epidural bolus was administered by Anesthesiology. She was comfortable. I performed a curettage and manual cleaning of the uterus in the OR. She has received IV oxytocin, IM Methergine, and rectal Cytotec. It was uncomplicated. See dictated op note for details. I signed out to my partner on 07/29/2020 morning, she was discharged on 07/30/2020 with prescriptions for pain medication, vitamin. She is to be seen in the office in 2-3 weeks. All questions were answered. Job ID: [id number] [facility]
== END 2020-07-30 18:50 | disposition home or self-care (01) | DRG 798 ==
LOC: 4S1 07:39 → 4S2 07-29 05:44